=== PATIENT | male | born 1945 ===

== ENCOUNTER 2018-02-22 11:19 | Inpatient (IN) | payer OTHER ==
[~2018-02-22] VITALS: Ht 172.7 cm; Wt 80.7 kg
[2018-02-22] MEDS ORDERED: TAMS0.4C PO (11:46)
[2018-02-22] MEDS ORDERED: VASOTEC5 MG PO (11:46)
[2018-02-22] MEDS ORDERED: METFORMIN HCL500 MG PO (11:46)
[2018-02-22] MEDS ORDERED: ZOCOR5 MG PO (11:47)
[2018-03-02] MEDS ORDERED: INTESTINEX680 M1 PO (12:07)
[2018-03-02] MEDS ORDERED: ULTRACET PO (12:07)
== END 2018-03-02 13:37 | disposition home or self-care (01) | DRG 331 ==
LOC: O/R 02-25 06:25 → SURH 02-25 06:25 → SURG 02-25 13:15 → SURH 02-25 15:33
PROVIDERS: Surgery
PROC: 07TC4ZZ Resection of Pelvis Lymphatic, Percutaneous Endoscopic Approach (ICD-10-PCS; 2018-02-25)
PROC: 0DTF4ZZ Resection of Right Large Intestine, Percutaneous Endoscopic Approach (ICD-10-PCS; principal; 2018-02-25 15:00)
DX: C18.0 Malignant neoplasm of cecum (principal); R59.0 Localized enlarged lymph nodes; I11.9 Hypertensive heart disease without heart failure; E11.9 Type 2 diabetes mellitus without complications; E78.4 Other hyperlipidemia; D50.0 Iron deficiency anemia secondary to blood loss (chronic)

== ENCOUNTER 2019-01-12 11:43 | Outpatient (CLI) | payer OTHER ==
[~2019-01-12 11:43] MED LIST: INTESTINEX680 M1 PO; METFORMIN HCL500 MG PO; TAMS0.4C PO; ULTRACET PO; VASOTEC5 MG PO; ZOCOR5 MG PO
== END 2019-01-12 11:50 | disposition home or self-care (01) ==
LOC: LAB 11:43
DX: C18.2 Malignant neoplasm of ascending colon (principal); R19.4 Change in bowel habit; R19.5 Other fecal abnormalities; R59.0 Localized enlarged lymph nodes

== ENCOUNTER 2019-02-15 06:43 | Outpatient (CLI) | payer OTHER | END 2019-02-15 16:55 | disposition home or self-care (01) | LOC: LAB 06:43 | DX: D68.8 Other specified coagulation defects (principal) ==

== ENCOUNTER 2019-02-15 06:54 | Day surgery (SDC) | payer OTHER | END 2019-02-15 13:05 | disposition home or self-care (01) | LOC: AMB-ENDOS 06:54 | DX: K64.8 Other hemorrhoids (principal) ==

== ENCOUNTER → 2020-04-17 | Day surgery (SDC) | payer OTHER | END | disposition home or self-care (01) | LOC: ADM 04-10 09:45 → AMB-ENDOS 09:04 | PROVIDERS: ATTEND Surgery | DX: K62.89 Other specified diseases of anus and rectum (principal); K64.8 Other hemorrhoids; Z20.828 Contact with and (suspected) exposure to other viral communicable diseases ==